=== PATIENT | male | born 1995 | race Caucasian/White ===

== ENCOUNTER 2019-11-23 02:50 | Emergency (ER) | payer MEDICAID ==
[~2019-11-23] VITALS: Ht 167.6 cm; Wt 70.0 kg
[2019-11-23] MEDS ORDERED: ONDANSETRON HCL 4MG/2ML INJ IV STA (03:03)
[2019-11-23] MEDS ORDERED: MORPHINE SULFATE 4 MG/ML CPJ (NOT FOR IM USE) IV STA (03:03)
[2019-11-23] MEDS ORDERED: CEFAZOLIN 1000MG PREMIX 50 ML IV ONE (03:15)
[2019-11-23] MEDS ORDERED: TETANUS, DIPHTHERIA, PERTUSSIS VAC/PF 0.5ML (>7YR OLD) IM ONE (03:15)
[2019-11-23] MEDS ORDERED: BACITRACIN ZINC OINT UDPKT TOP ONE (04:30)
[2019-11-23 05:02] VITALS: BP 129/68
== END 2019-11-23 06:04 | disposition home or self-care (01) ==
LOC: ER 02:50
DX: S81.801A Unspecified open wound, right lower leg, initial encounter (principal); W34.00XA Accidental discharge from unspecified firearms or gun, initial encounter; Y93.89 Activity, other specified; Y92.89 Other specified places as the place of occurrence of the external cause; Y99.8 Other external cause status
CPT/HCPCS: 73590; 90471; 90715; 93005; 96365; 96375; 99284; J0690; J2270; J2405